=== PATIENT | female | born 1970 | race African-American/Black ===

== ENCOUNTER → 2021-02-12 13:04 | Outpatient (CLI) | payer OTHER, SELFPAY ==
--- NOTE | 2021-02-12 13:10 | STEWCON_ITS ---
Reason For Study: ARRHYHTMIA-OTHER Stress Results Protocol: Josh Protocol WITH DEFINITY Maximum Predicted HR: 169 bpm Target HR: 144 bpm % Maximum Predicted HR: 88 % DurationHeart Rate Stage (mm:ss) (bpm) BP Comment BASELINE 54 128/68 STAGE 1 3:00 96 152/78 STAGE 2 3:00 116 142/80 STAGE 3 3:00 133 142/80 STAGE 4 0:30 148 / 4 CC DEFINITY FOR ENTIRE TEST RECOVERY 75 118/72NO CHEST PAIN EXPRESSED DURING TEST Stress Duration: 9:30 mm:ss Maximum Stress HR: 148 bpm Baseline Echocardiogram Findings Stress Echo Wall motion Data Resting WM Intermediate WM Stress WM ECHO/Stress Test Echo W/Contrast Interpretation Summary Exercise stress echo. Stress EKG. Resting EKG demonstrates normal sinus rhythm with a rate of 62 bpm normal inter vals are noted resting blood pressure is 162/68 mmHg. The patient exercised according to regul ar Josh protocol for total duration of 9 minutes and 31 seconds completing 31 seconds into stage IV of the Josh protocol. The maximum heart rate attained was 151 bpm which was 89% of max impa ct at heart rate the maximum workload was 11.6 metabolic equivalents. At rest there were no ST or T wave changes noted suggest ischemia and at peak exercise upsloping ST changes were noted with did not meet the criteria for ischemia. No clinical angina was noted the test was terminated due to short ness of breath. The rate-pressure product was 18,886. Stress echocardiogram. Resting and stress echocardiographic images were obtained. Definity was used to enhance image quality. The resting echocardiogram demonstrated an ejection fraction of 45%. A t peak exercise there was thickening of all springer reduction in low ventricular cavity size peaking at 55% with no wall motion abnormalities noted. Conclusion: Normal exercise stress echo with no evidence of ischemia. Mildly reduced left ventricular ejection fraction at rest. Ordering Physician: Jesika, Willy Referring Physician: Willy Canchola Performed By: Rommel Spring RCS
== END ==
PROVIDERS: PCP Family Medicine; Referring Provider Internal Medicine Cardiovascular Disease; Visit Provider Internal Medicine Cardiovascular Disease
DX: R07.9 Chest pain, unspecified (principal)
CPT/HCPCS: 93017; 93350; Q9957; A4216; C8928; J3490

== ENCOUNTER 2021-05-11 08:58 | Outpatient (CLI) | payer OTHER, SELFPAY ==
--- NOTE | 2021-05-11 09:07 | ECHOD_ITS ---
Version 2 Reason For Study: CARDIOMYOPATHY Procedure This was a 2D Doppler, Color Flow transthoracic echocardiogram. Exam performed in department. Left Ventricle Normal LV size. Mid cavitary false tendon noted. Left ventricular systolic function is normal. The estimated ejection fraction is 55 %. No regional wall motion abnormalities noted. Right Ventricle Normal RV size. Normal systolic function. Atria Normal left atrium. Normal right atrium. Mitral Valve Normal mitral valve. Tricuspid Valve Normal tricuspid valve. Mild tricuspid valve insufficiency. Pulmonary artery systolic pressure is 25 mmHg. Aortic Valve Normal aortic valve. Trisinus/trileaflet aortic valve. Pulmonic Valve Normal pulmonic valve. Great Vessels Normal aortic root. The pulmonary artery is normal size. Normal inferior vena cava. Pericardium/Pleural No pericardial effusion. MMode/2D Measurements & Calculations LVIDd: 4.4 cm IVSd: 0.84 cm Ao root diam: 3.0 cm LVIDs: 3.1 cm LVPWd: 0.81 cm RVDd: 2.8 cm FS: 30.6 % LAV(MOD-bp): 28.6 ml LVAd ap4: 22.4 cm2 LVAd ap2: 23.1 cm2 LAV(MOD-bp) Indexed: 16.9 ml/m2 LVLd ap4: 6.6 cm LVLd ap2: 7.2 cm LAV(MOD-sp2): 30.1 ml EDV(MOD-sp4): 70.3 ml EDV(MOD-sp2): 70.1 ml LAV(MOD-sp4): 27.1 ml EDV(sp4-el): 64.4 ml EDV(sp2-el): 62.9 ml LVAs ap4: 13.0 cm2 LVAs ap2: 13.0 cm2 LVLs ap4: 5.6 cm LVLs ap2: 5.5 cm ESV(MOD-sp4): 29.0 ml ESV(MOD-sp2): 29.6 ml ESV(sp4-el): 25.7 ml ESV(sp2-el): 26.1 ml EF(MOD-sp4): 58.7 % EF(MOD-sp2): 57.8 % EF(sp4-el): 60.2 % SV(MOD-sp4): 41.2 ml SV(MOD-sp2): 40.5 ml SV(sp4-el): 38.8 ml LA dimension(2D): 2.4 cm LA A4 area: 12.5 cm2 RA A4 area: 11.7 cm2 Time Measurements MV dec time: 0.13 sec Doppler Measurements & Calculations MV E max ivan: 97.1 cm/sec Lat Peak E' Ivan: 10.4 cm/sec Med Peak E' Ivan: 10.8 cm/sec MV A max ivan: 65.7 cm/sec E/E' lat: 9.3 E/E' med: 9.0 MV E/A: 1.5 Ao V2 max: 121.0 cm/sec LV V1 max: 95.7 cm/sec PA V2 max: 98.0 cm/sec Ao max P.9 mmHg LV V1 max P.7 mmHg PI dec slope: 82.0 cm/sec2 TR max ivan: 229.3 cm/sec TR max P.0 mmHg ECHO/Echo Complete Interpretation Summary Normal LV size. Left ventricular systolic function is normal. The estimated ejection fraction is 55 %. No regional wall motion abnormalities noted. Pulmonary artery systolic pressure is 25 mmHg. Ordering Physician: Willy Canchola Referring Physician: Noel Gallegos Performed By: Breanna Antonio, ZACS, RVT
== END 2021-05-11 23:59 | disposition home or self-care (01) ==
LOC: CVS 09:07
PROVIDERS: PCP Family Medicine; Referring Provider Internal Medicine Cardiovascular Disease; Visit Provider Internal Medicine Cardiovascular Disease
DX: I42.8 Other cardiomyopathies (principal); R07.9 Chest pain, unspecified; R06.2 Wheezing
CPT/HCPCS: 93306